=== PATIENT | female | born 1995 | race Caucasian/White ===

== ENCOUNTER → 2017-05-21 | Outpatient (CLI) | payer SELFPAY ==
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
== END ==
LOC: RAD 10:43
PROVIDERS: ATTEND Family Medicine
DX: Z36.89 Encounter for other specified antenatal screening (principal); Z3A.24 24 weeks gestation of pregnancy
CPT/HCPCS: 76805

== ENCOUNTER 2017-06-28 15:58 | Observation (INO) | payer SELFPAY ==
[~2017-06-28] VITALS: Ht 157.5 cm; Wt 71.7 kg
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
[2017-06-28 16:19] LABS: BASOPHILS # (AUTO) 0.1 10^3/uL (0.0-0.1); BASOPHILS % (AUTO) 0 % (0-10); EOSINOPHILS # (AUTO) 0.1 10^3/uL (0.0-0.3); EOSINOPHILS % (AUTO) 1 % (0-10); HEMATOCRIT 34 % (35-52); LYMPHOCYTES # (AUTO) 2.2 X 10^3 (1.0-4.0); LYMPHOCYTES % (AUTO) 17 % (12-44); MEAN CORPUSCULAR HEMOGLOBIN 30 PG (25-34); MEAN CORPUSCULAR HGB CONC 36 G/DL (32-36); MEAN CORPUSCULAR VOLUME 85 FL (80-99); MEAN PLATELET VOLUME 10.6 FL (7.4-10.4); MONOCYTES # (AUTO) 1.1 X 10^3 (0.0-1.0); MONOCYTES % (AUTO) 8 % (0-12); NEUTROPHILS # (AUTO) 9.7 X 10^3 (1.8-7.8); NEUTROPHILS % (AUTO) 74 % (42-75); PLATELET COUNT 246 10^3/uL (130-400); RED BLOOD COUNT 3.96 10^6/uL (4.35-5.85)
[2017-06-28] MEDS ORDERED: NS IV 1000 ML 1,000 ML IV SCH (16:45)
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
[2017-06-28 17:45] LABS: BILIRUBIN,URINE NEGATIVE (NEGATIVE); CLARITY,URINE SLIGHTLY CLOUDY; COLOR,URINE YELLOW; GLUCOSE, URINE (UA) NEGATIVE (NEGATIVE); KETONES,URINE 4+ (NEGATIVE); LEUKOCYTE ESTERASE ,URINE 3+ (NEGATIVE); NITRITE,URINE NEGATIVE (NEGATIVE); PH,URINE 7 (5-9); PROTEIN,URINE 1+ (NEGATIVE); UROBILINOGEN,URINE NORMAL (NORMAL)
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
[2017-06-28 18:15] LABS: BACTERIA,URINE TRACE /HPF; RBC,URINE >100 /HPF
[2017-06-28 18:16] LABS: SQUAMOUS EPITHELIAL CELL,UR >50 /HPF
[2017-06-28 18:44] LABS: BUN/CREATININE RATIO 13; CALCIUM 9.2 MG/DL (8.5-10.1); CARBON DIOXIDE 18 MMOL/L (21-32); CHLORIDE 109 MMOL/L (98-107); CREATININE SERUM 0.61 MG/DL (0.60-1.30); GFR ESTIMATED > 60; GLUCOSE 73 MG/DL (70-105); POTASSIUM 3.4 MMOL/L (3.6-5.0); SODIUM 137 MMOL/L (135-145)
[2017-06-28] MEDS ORDERED: IOHEXOL 350 MG/ML 100 ML (OMNIPAQUE 350) VIAL IV ONE (19:15)
[2017-06-28] MEDS ORDERED: NS 100 ML (IVPB) BAG IV ONE (19:15)
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
[2017-06-28 22:00] VITALS: BP 120/69
[2017-06-28] MEDS ORDERED: LACTATED RINGERS 1,000 ML IV ONE (22:02)
[2017-06-28] MEDS: LACTATED RINGERS 1,000 ML IV SCH (22:05)
[2017-06-29 04:00] VITALS: BP 128/59
[2017-06-29] MEDS: LACTATED RINGERS 1,000 ML IV SCH (05:00)
[2017-06-29] MEDS ORDERED: PROMETHAZINE 25 MG (PHENERGAN) TAB PO PRN (05:15)
[2017-06-29 06:00] VITALS: BP 97/54
[2017-06-29 10:10] VITALS: BP 106/55
[2017-06-29 10:54] LABS: MEAN PLATELET VOLUME 10.1 FL (7.4-10.4); RED BLOOD COUNT 3.61 10^6/uL (4.35-5.85); RED CELL DISTRIBUTION WIDTH 14.2 % (10.0-14.5); WHITE BLOOD COUNT 8.8 10^3/uL (4.3-11.0)
[2017-06-29 10:54] LABS: BILIRUBIN,URINE NEGATIVE (NEGATIVE); CLARITY,URINE CLEAR; COLOR,URINE YELLOW; GLUCOSE, URINE (UA) NEGATIVE (NEGATIVE); KETONES,URINE 3+ (NEGATIVE); LEUKOCYTE ESTERASE ,URINE 2+ (NEGATIVE); NITRITE,URINE NEGATIVE (NEGATIVE); PH,URINE 7 (5-9); PROTEIN,URINE NEGATIVE (NEGATIVE); UROBILINOGEN,URINE NORMAL (NORMAL)
[2017-06-29 11:02] LABS: BACTERIA,URINE MODERATE /HPF
[2017-06-29 11:14] LABS: ALANINE AMINOTRANSFERASE 14 U/L (0-55); ALBUMIN 3.3 GM/DL (3.2-4.5); ALKALINE PHOSPHATASE 60 U/L (40-136); BILIRUBIN,TOTAL 0.3 MG/DL (0.1-1.0); BUN/CREATININE RATIO 13; CALCIUM 8.8 MG/DL (8.5-10.1); CARBON DIOXIDE 19 MMOL/L (21-32); CHLORIDE 110 MMOL/L (98-107); CREATININE SERUM 0.54 MG/DL (0.60-1.30); GFR ESTIMATED > 60; GLUCOSE 68 MG/DL (70-105); POTASSIUM 3.1 MMOL/L (3.6-5.0); SODIUM 139 MMOL/L (135-145); TOTAL PROTEIN 5.9 GM/DL (6.4-8.2)
[2017-06-29] MEDS ORDERED: KCL 20 MEQ TAB (K-DUR) PO ONE (11:30)
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
[2017-06-29] MEDS ORDERED: PNV1TABL81 PO (12:21)
[2017-06-29 12:25] VITALS: BP 104/71
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
== END 2017-06-29 12:48 | disposition home or self-care (01) ==
LOC: EDUNIT# 15:58 → ER 15:59 → LDRP 20:07 → UNDOADMOB 20:07 → LDRP 20:30 → UNDODISOB 06-29 13:50
PROVIDERS: ADMIT Family Medicine; ATTEND Family Medicine
DX: O9A.313 Physical abuse complicating pregnancy, third trimester (principal); S50.11XA Contusion of right forearm, initial encounter; S50.12XA Contusion of left forearm, initial encounter; O99.89 Other specified diseases and conditions complicating pregnancy, childbirth and the puerperium; N13.30 Unspecified hydronephrosis; N20.0 Calculus of kidney; Y04.0XXA Assault by unarmed brawl or fight, initial encounter; Y92.019 Unspecified place in single-family (private) house as the place of occurrence of the external cause; Y07.01 Husband, perpetrator of maltreatment and neglect; Z3A.28 28 weeks gestation of pregnancy
CPT/HCPCS: 36415; 74177; 76700; 76815; 80048; 80053; 81000; 85025; 85027; 87088; 96360; 96361; G0378